=== PATIENT | male | born 1985 | race Caucasian/White ===

== ENCOUNTER 2020-10-19 21:29 | Emergency (ER) | payer OTHER ==
[~2020-10-19] VITALS: Ht 193 cm; Wt 153.5 kg
[2020-10-19 21:38] VITALS: BP 129/78
--- NOTE | 2020-10-19 22:36 | PHYS DOC ---
Past History Past Medical History: No Pertinent History Past Surgical History: No Surgical History Alcohol Use: Occasionally Adult General Chief Complaint Chief Complaint: Palpitations HPI HPI Patient is an otherwise healthy 35-year-old male who presents with a chief complaint of fast heart rate. States he has 1 of those Algolux watches and his heart rate was 99 earlier today so wanted to come in and get checked out. Denies headache, chest pain, shortness of breath, abdominal pain, nausea, vomiting, dysuria, hematuria or blood in the stool. Denies any sweating. Denies any dyspnea on exertion, orthopnea, PND or edema. Does state that he drinks 4-6 energy drinks daily however though and this could be contributing. Denies any other alcohol or drug use. Denies any cardiovascular history in him or in his family until the age of 59 or 69. Review of Systems Review of Systems Review of systems otherwise unremarkable except noted in HPI Allergies Allergies Allergies Coded Allergies Type Severity Reaction Last Updated Verified No Known Allergies Allergy Unknown 10/19/20 Yes Physical Exam Physical Exam Constitutional: Well developed, well nourished, no acute distress, non-toxic appearance. [] HENT: Normocephalic, atraumatic, bilateral external ears normal, oropharynx moist, no oral exudates, nose normal. [] Eyes: , conjunctiva normal, no discharge. [] Neck: Normal range of motion, no tenderness, supple, no stridor. [] Cardiovascular:Heart rate regular rhythm, no murmur [] Lungs & Thorax: Bilateral breath sounds clear to auscultation [] Abdomen: soft, no tenderness, no masses, no pulsatile masses. [] Skin: Warm, dry, no erythema, no rash. [] Back: No tenderness, no CVA tenderness. [] Extremities: No tenderness, no cyanosis, no clubbing, ROM intact, no edema. [] Neurologic: Alert and oriented X 3, normal motor function, normal sensory function, no focal deficits noted. [] Psychologic: Affect normal, judgement normal, mood normal. [] Current Patient Data Vital Signs Vital Signs Date Time Temp Pulse Resp B/P (MAP) Pulse Ox O2 Delivery O2 Flow Rate FiO2 10/19/20 21:38 97 20 129/78 (95) 97 Room Air EKG EKG Rate of 99, QRS of 92, QTc of 426, no STEMI, sinus rhythm Radiology/Procedures Radiology/Procedures [] Heart Score C/O Chest Pain: No Risk Factors: Risk Factors: DM, Current or recent (<one month) smoker, HTN, HLP, family history of CAD, obesity. Risk Scores: Risk Factors: DM, Current or recent (<one month) smoker, HTN, HLP, family history of CAD, obesity. Course & Med Decision Making Course & Med Decision Making Patient is a 35-year-old male who presents with fast heart rate on his watch Vital signs not concerning. Physical exam noted above. Heart score of 1. Low risk Wells. PERC negative. Patient asymptomatic. Came in just because his stated his heart rate was in the 90s and he thought this was fast. Discussed that drinking 4-6 Monster drinks plus caffeine-containing coffee dri nks daily is a likely culprit of his increased heart rate and prolonged use can cause damage. Advised cutting significantly back on these. Advised increased water intake. Advised to follow-up with primary care physician tomorrow to set up of follow-up ED visit. Gave return precautions to the ED. Patient grateful, verbalized understanding and agreed with plan of discharge. [] Dragon Disclaimer Dragon Disclaimer This electronic medical record was generated, in whole or in part, using a voice recognition dictation system. Departure Departure: Impression: Primary Impression: Heart rate fast Disposition: 01 HOME / SELF CARE / HOMELESS Condition: GOOD Referrals: PCP,NO (PCP) RUSS MCKEON MD Patient Instructions: Diet - Sources of Caffeine, Nonspecific Tachycardia Additional Instructions: Please read all the attached information very carefully. As discussed please cut back significantly on your caffeine intake and drink plenty of water. Please lay off any exercise supplements containing the same. Please call your primary care physician first thing in the morning to update on ED visit and set up a follow-up as soon as possible. Please come back to the emergency de partment immediately with new or concerning symptoms as discussed. CROW WHALEN MD October 19, 2020 22:36
--- NOTE | 2020-10-21 04:55 | EKG ---
[address] [address] Test Date: 2020-10-19 Test Time: 21:37:47 Pat Name: PAULA GREENE Department: Room: Gender: M [employer] Equipment [employer]: : 1985 Requested By: CROW WHALEN Order Number: [id number] Reading MD: Measurements Intervals [place] Rate: 99 P: 46 AR: 158 QRS: 31 QRSD: 92 T: 16 QT: 328 QTc: 426 Interpretive Statements SINUS RHYTHM NORMAL ECG RI6.02 No previous ECG available for comparison
== END 2020-10-19 22:40 | disposition home or self-care (01) ==
LOC: ER 21:29
DX: R00.0 Tachycardia, unspecified (principal)
CPT/HCPCS: 99281-25

== ENCOUNTER 2021-05-05 09:01 | Emergency (ER) | payer OTHER ==
[~2021-05-05] VITALS: Ht 193 cm; Wt 154.5 kg
[2021-05-05] MEDS ORDERED: KETOROLAC 60 MG/2 ML VIAL. IM ONE (10:00)
[2021-05-05] MEDS ORDERED: ORPHENADRINE CITRATE 60 MG/2 ML VIAL. IM ONE (10:00)
--- NOTE | 2021-05-05 10:34 | PHYS DOC ---
Past History Past Medical History: No Pertinent History (FRANCK GARBER APRN) Past Surgical History: No Surgical History (FRANCK GARBER APRN) Alcohol Use: Occasionally (FRANCK GARBER APRN) General Adult EDM: Chief Complaint: MECHANICAL FALL HPI: HPI: Patient is a 35-year-old male presents after a fall. Patient states that he fell down the stairs yesterday. Patient denies taking anything for pain. Pain is worse with ambulation. Denies hitting his head or loss of consciousness. No other injuries noted. Patient states "I think I broke my tailbone". Denies medical history. Up-to-date on immunizations. Fully vaccinated for Covid. (FRANCK GARBER APRN) Review of Systems: Review of Systems: ROS At least 10 ROS systems have been reviewed and are negative except as documented in the HPI. General: Negative except as outlined in HPI above. Skin: Negative except as outlined in HPI above. HEENT: Negative except as outlined in HPI above. Neck: Negative except as outlined in HPI above. Respiratory: Negative except as outlined in HPI above.. Cardiovascular: Negative except as outlined in HPI above. Abdomen: Negative except as outlined in HPI above. : Negative except as outlined in HPI above. Back/MSK: Negative except as outlined in HPI above. Neuro: Negative except as outlined in HPI above. Psych: Negative except as outlined in HPI above. (FRANCK GARBER APRN) Current Medications: Current Meds: Current Medications Medications (Trade) Dose Ordered Sig/Lennie Start Time Stop Time Status Last Admin Dose Admin Ketorolac Tromethamine (Toradol Im) 60 mg 1X ONCE 05/05/21 10:00 05/05/21 10:01 DC Orphenadrine Citrate (Norflex) 60 mg 1X ONCE 05/05/21 10:00 05/05/21 10:01 DC (FRANCK GARBER APRN) Allergies: Allergies: Allergies Coded Allergies Type Severity Reaction Last Updated Verified No Known Allergies Allergy Unknown 10/19/20 Yes (FRANCK GARBER APRN) Physical Exam: PE: Constitutional: Well developed, well nourished, no acute distress, non-toxic appearance. [] HENT: Normocephalic, atraumatic, bilateral external ears normal, oropharynx moist, no oral exudates, nose normal. [] Eyes: PERRLA, EOMI, conjunctiva normal, no discharge. [] Neck: Normal range of motion, no tenderness, supple, no stridor. [] Cardiovascular:Heart rate regular rhythm, no murmur [] Lungs & Thorax: Bilateral breath sounds clear to auscultation [] Abdomen: Bowel sounds normal, soft, no tenderness, no masses, no pulsatile masses. [] Skin: Warm, dry, no erythema, no rash. [] Back: Tenderness to sacrum Extremities: No tenderness, no cyanosis, no clubbing, ROM intact, no edema. [] Neurologic: Alert and oriented X 3, normal motor function, normal sensory function, no focal deficits noted. [] Psychologic: Affect normal, judgement normal, mood normal. [] (FRANCK GARBER APRN) Current Patient Data: Vital Signs: Vital Signs Date Time Temp Pulse Resp B/P (MAP) Pulse Ox O2 Delivery O2 Flow Rate FiO2 05/05/21 09:52 98.5 88 16 167/87 (113) 99 Room Air (FRANCK GARBER APRN) EKG: EKG: [] (FRANCK GARBER APRN) Radiology/Procedures: Radiology/Procedures: []3 views lumbar spine 05/05/2021 10:32 AM Indication: Reason: FALL / Spl. Instructions: / History: Comparison: None Findings: No evidence of acute fracture or alignment abnormality is identified. Vertebral body heights are maintained. Minimal degenerative changes of vertebral body endplates are noted throughout, without significant disc space narrowing. Facet arthrosis appears be present at L4-5 and L5-S1. No acute soft tissue changes are identified. IMPRESSION: Mild degenerative changes of the lumbar spine without evidence of acute fracture or alignment abnormality Electronically signed by: Layo Chu MD (05/05/2021 10:45 AM) [id number] (FRANCK GARBER APRN) Heart Score: C/O Chest Pain: No Risk Factors: Risk Factors: DM, Current or recent (<one month) smoker, HTN, HLP, family history of CAD, obesity. Risk Scores: Score 0 - 3: 2.5% MACE over next 6 weeks - Discharge Home Score 4 - 6: 20.3% MACE over next 6 weeks - Admit for Clinical Observation Score 7 - 10: 72.7% MACE over next 6 weeks - Early Invasive Strategies (FRANCK GARBER APRN) Course & Med Decision Making: Course & Med Decision Making Pertinent Labs and Imaging studies reviewed. (See chart for details) [] 35-year-old male presents after a fall down his steps yesterday. Sacrum and coccyx x-ray ordered along with lumbar. Lumbar x-ray is unremarkable. Patient given IM Toradol and Norflex to help with pain in the ER. Denies loss of bowel or urinary retention. Denies saddle anesthesia. Denies all other injuries. Patient sent home with Norflex and instructions to take ibuprofen for pain. Discussed return precautions at length. Patient reports he understands discharge instructions. Advised patient to follow-up with his PCP if symptoms do not improve for possible further imaging or management. Patient agrees with discharge plan. Patient is hemodynamically stable upon disposition. (FRANCK GARBER APRN) Course & Med Decision Making I was the Attending physician on the above date of service of this patient. This patient was evaluated, examined, treated, and dispositioned from the emergency department by the mid-level practitioner. Although I was working at the time , no assistance was requested. Electronically signed, Glenny Larsen DO (GLENNY LARSEN DO) Ba Disclaimer: Ba Disclaimer: This electronic medical record was generated, in whole or in part, using a voice recognition dictation system. (FRANCK GARBER APRN) Departure Departure: Impression: Primary Impression: Back pain Qualified Codes: M54.50 - Low back pain, unspecified Disposition: HOME / SELF CARE / HOMELESS Condition: STABLE Referrals: HALLEY KANG MD (PCP) Patient Instructions: Back Pain, Adult, [id number] Additional Instructions: You were seen in the emergency room for lower back pain after a fall. You were given Toradol and Norflex to help with pain. I am sending you home with a prescription for muscle relaxer. Please continue taking Motrin for discomfort. Follow-up with your PCP if pain does not improve. Return to the emergency room if you have any worsening symptoms or concerns. EMERGENCY DEPARTMENT GENERAL DISCHARGE INSTRUCTIONS Thank you for coming to [facility] (ED) today and trusting us with you care. We trust that you had a positivie experience in our Emergency Department. If you wish to speak to the department management, you may call the director at [phone]. YOUR FOLLOW UP INSTRUCTIONS ARE FOLLOWS: 1. Do you have a private Doctor? If you do not have a private doctor, please ask for a resource list of physicians or clinics that may be able to assist you with follow up care. 2. The Emergency Physician has interpreted your x-rays. The X-Ray specialist will also review them. If there is a change in the findings, you will be notified in 48 hours when at all possible. 3. A lab test or culture has been done, your results will be reviewed and you will be notified if you need a change in treatment. ADDITIONAL INSTRUCTIONS AND INFORMATION: 1. Your care today has been supervised by a physician who is specially trained in emergency care. Many problems require more than one evaluation for a complete diagnosis and treatment. We recommend that you schedule your follow up appointment as recommended to ensure complete treatment of you illness or injury. If you are unable to obtain follow up care and continue to have a problem, or if your condition worsens, we recommend that you return to the ED. 2. We are not able to safely determine your condition over the phone nor are we able to give sound medical advice over the phone. For these safety reasons, if you call for medical advice we will ask you to come to the ED for further evaluation. 3. If you have any questions regarding these discharge instructions please call the ED at [phone]. SAFETY INFORMATION: In the interest of safety, wellness, and injury prevention; we encourage you to wear your sealbelt, if you smoke; quite smoking, and we encourage family to use a protective helmet for bicycling and other sporting events that present an increased risk for head injury. IF YOUR SYMPTOMS WORSEN OR NEW SYMPTOMS DEVELOP, OR YOU HAVE CONCERNS ABOUT YOUR CONDITION; OR IF YOUR CONDITION WORSENS WHILE YOU ARE WAITING FOR YOUR FOLLOW UP APPOINTMENT; EITHER CONTACT YOUR PRIMARY CARE DOCTOR, THE PHYSICIAN WHOSE NAME AND NUMBER YOU WERE GIVEN, OR RETURN TO THE ED IMMEDIATELY. Scripts Cyclobenzaprine Hcl (CYCLOBENZAPRINE HCL) 10 Mg Tablet 1 TAB PO TID for pain for 10 Days, #30 TAB Prov: FRANCK GARBER APRN 05/05/21 FRANCK GARBER APRN May 05, 2021 10:34 GLENNY LARSEN DO May 09, 2021 07:46
--- NOTE | 2021-05-05 10:47 | RAD ---
3 views lumbar spine 05/05/2021 10:32 AM Indication: Reason: FALL / Spl. Instructions: / History: Comparison: None Findings: No evidence of acute fracture or alignment abnormality is identified. Vertebral body height s are maintained. Minimal degenerative changes of vertebral body endplates are noted throughout, with out significant disc space narrowing. Facet arthrosis appears be present at L4-5 and L5-S1. No acute soft tissue changes are identified. IMPRESSION: Mild degenerative changes of the lumbar spine without evidence of acute fracture or align ment abnormality Electronically signed by: Layo Chu MD (05/05/2021 10:45 AM) [id number]
--- NOTE | 2021-05-05 11:53 | RAD ---
XR SACRUM AND COCCYX 2+VIEWS History: Fall. Comparison: Lumbar spine radiographs obtained same date. Technique: AP view of the coccyx, AP view the sacrum and lateral view of the sacrum and coccyx. Findings: Osseous mineralization is normal. Stool in the rectum obscures the distal sacrum and coccyx on the AP view. On the lateral view sacrum and coccyx demonstrate normal alignment. No fractures identified. M ild degenerative changes of the lumbar spine. Sacroiliac joints are unremarkable. Impression: 1. No acute osseous abnormality identified in the sacrum and coccyx. Electronically signed by: Eddy Paris MD (05/05/2021 11:50 AM) [id number]
[2021-05-05] MEDS ORDERED: CYCL10TA19 PO (12:16)
[2021-05-05 12:24] VITALS: BP 154/79
== END 2021-05-05 12:25 | disposition home or self-care (01) ==
LOC: ER 09:01
DX: M53.3 Sacrococcygeal disorders, not elsewhere classified (principal); W10.8XXA Fall (on) (from) other stairs and steps, initial encounter; Y93.89 Activity, other specified; Y92.89 Other specified places as the place of occurrence of the external cause; Y99.8 Other external cause status
CPT/HCPCS: 72100; 72220; 96372; 99284; J1885; J2360